=== PATIENT | male | born 1995 | race Two or more races ===

== ENCOUNTER 2019-05-13 08:39 | Emergency (ER) | payer OTHER ==
[~2019-05-13] VITALS: Ht 180.3 cm; Wt 65.8 kg
[2019-05-13] MEDS ORDERED: LIDOCAINE 1%-EPI 1:100,000 20 ML VIAL ONE (08:45)
--- NOTE | 2019-05-13 08:45 | NUR ---
PT BIBLAPD IN CUSTODY C/O LAC TO BACK OF L HAND, APPROX 1CM, SUPERFICIAL BUT EDGES NOT WELL APPROXIMATED. PT DENIES TETANUS SHOT WITHIN LAST 5 YEARS. DENIES OTHER COMPLAINTS. IN ER BED 12.
[2019-05-13] MEDS ORDERED: TDAP [DIPH/PERTUSSIS/TET] 0.5 ML VIAL IM ONE ×2 (08:54→09:00)
[2019-05-13] MEDS ORDERED: BACI/NEOM/POLY B OINT PKT 1 UDPKT PACKET TP ONE (09:00)
[2019-05-13] MEDS ORDERED: LIDOCAINE 1%-EPI 1:100,000 20 ML VIAL TP ONE (09:00)
[2019-05-13 10:47] VITALS: BP 127/74
--- NOTE | 2019-05-13 10:47 | NUR ---
Patient discharged to home in stable condition. Written and verbal after care instructions given. Patient verbalizes understanding of instruction.
== END 2019-05-13 10:48 ==
LOC: ER 08:41
DX: S61.412A Laceration without foreign body of left hand, initial encounter (principal); F17.200 Nicotine dependence, unspecified, uncomplicated; Z60.2 Problems related to living alone; W25.XXXA Contact with sharp glass, initial encounter; Y93.89 Activity, other specified; Y92.89 Other specified places as the place of occurrence of the external cause; Y99.8 Other external cause status
CPT/HCPCS: 12002; 73130; 90471; 90715; 99283; 99406; A6403; J3490